=== PATIENT | male | born 1930 | race Caucasian/White ===

== ENCOUNTER 2016-07-25 16:52 | Inpatient (IN) | payer MEDICARE, BC ==
[~2016-07-25] VITALS: Ht 177.8 cm; Wt 81.9 kg
[~2016-07-25 16:52] MED LIST: ALTA2.5C4 PO; ASPI81TA82 PO; LORA-474 PO; PRAS10TA PO; ROSU40 PO
[2016-07-25 16:54] VITALS: BP 138/80; PULSE 80; RESP 16; TEMP 98.2; O2SAT 96
[2016-07-25] MEDS ORDERED: LEXA20TA PO (17:25)
[2016-07-25] MEDS ORDERED: PROT40TA PO (17:25)
[2016-07-25] MEDS ORDERED: ASPI1TAB69 PO (17:25)
[2016-07-25] MEDS ORDERED: CARB25TA9 PO ×4 (17:25)
[2016-07-25] MEDS ORDERED: IRBE150T49 PO (17:25)
[2016-07-25 17:38] LABS: HEMATOCRIT 37.8 % (39.0-51.0); MEAN CELL VOLUME 89.2 FL (80.0-100.0); MEAN CORPUSCULAR HEMOGLOBIN 30.4 PG (27.0-34.0); MEAN CORPUSCULAR HGB CONC 34.1 % (32.0-36.0); PLATELET COUNT 102 TH/MM3 (150-450); RED BLOOD COUNT 4.24 MIL/MM3 (4.50-5.90); RED CELL DISTRIBUTION WIDTH 12.4 % (11.6-17.2); WHITE BLOOD COUNT 3.3 TH/MM3 (4.0-11.0)
[2016-07-25 17:46] LABS: POTASSIUM 3.8 MEQ/L (3.5-5.1)
[2016-07-25 17:50] LABS: BICARBONATE 30.5 MEQ/L (21.0-32.0); HEMO FLAGS AUTO DIFF
[2016-07-25 17:54] LABS: TOTAL BILIRUBIN ADULT 5.5 MG/DL (0.2-1.0)
[2016-07-25 18:15] LABS: POLYS (SEG NEUTROPHILS) 63 % (16-70)
[2016-07-25 18:16] LABS: BANDS 5 % (0-6); EOSINOPHILS 1 % (0-4); NEUTROPHIL # MANUAL DIFF 2.2 TH/MM3 (1.8-7.7)
[2016-07-25 18:17] LABS: PLATELET ESTIMATE SMEAR LOW (NORMAL); PLATELET MORPHOLOGY NORMAL (NORMAL); SCAN/DIFF FINAL DIFF MANUAL
--- NOTE | 2016-07-25 19:25 | PD ---
HPI Chief Complaint: Abnormal Results Time Seen by Provider: 17:08 Travel History International Travel<30 days: No Contact w/Intl Traveler<30days: No Traveled to known affect area: No History of Present Illness HPI Patient is a 86 year old male sent in by his primary physician for abnormal labs. He says that Thursday he was feeling nauseous and had vomiting. He went to an urgent care, where he was prescribed Zofran. He says the nausea and vomiting went away. He went to follow up with his doctor and was found to be jaundice. His doctor sent him to have lab work and a CT abd/pelvis done and when the results came back, he was told to come to the ED. He was found to have an elevated bilirubin to 7.2 as well as platelets of 88. Currently, patient reports no abdominal pain, he no longer has any nausea or vomiting. He says he has had a low-grade fever, around 99, all week. He currently is not having any symptoms. PFSH Past Medical History Depression: Yes Cancer: Yes (SKIN) Cardiovascular Problems: Yes High Cholesterol: Yes Diminished Hearing: Yes ([place]) Gastrointestinal Disorders: Yes (gallstones) GERD: Yes Hiatal Hernia: No Hypertension: Yes Parkinson's Disease: Yes Influenza Vaccination: No ?: Not Past Surgical History Abdominal Surgery: Yes (HERNIA) Cholecystectomy: Yes Coronary Stent: Yes Genitourinary Surgery: Yes (PROSTATE x2) Oral Surgery: Yes (tonsillectomy) Pacemaker: No Tonsillectomy: Yes Tympanostomy Tube: Yes Other Surgery: Yes (SKIN CA REMOVAL) Social History Alcohol Use: Yes (OCC) Tobacco Use: No Substance Use: No Allergies-Medications (Allergen,Severity, Reaction): Coded Allergies: No Known Allergies (Unverified , 07/25/16) Reported Meds & Prescriptions Reported Meds & Active Scripts Active Reported Protonix (Pantoprazole Sodium) 40 Mg Tab 40 Mg PO DAILY Aspirin 81 Mg Tabdr 81 Mg PO DAILY Carbidopa-Levodopa 25-100 Mg Tab 1.5 Tab PO 1700 Carbidopa-Levodopa 25-100 Mg Tab 2 Tab PO 1500 Carbidopa-Levodopa 25-100 Mg Tab 1.5 Tab PO 11AM Carbidopa-Levodopa 25-100 Mg Tab 2 Tab PO DAILY Lexapro (Escitalopram Oxalate) 20 Mg Tab 20 Mg PO DAILY Avapro (Irbesartan) 150 Mg Tab 150 Mg PO DAILY Review of Systems Except as stated in HPI: all other systems reviewed are Neg General / Constitutional: Positive: Fever, No: Chills HENT: No: Headaches, Lightheadedness Cardiovascular: No: Chest Pain or Discomfort Respiratory: No: Shortness of Breath Gastrointestinal: No: Nausea, Vomiting, Abdominal Pain Genitourinary: No: Dysuria Musculoskeletal: No: Edema Skin: Positive Change in Pigmentation Neurologic: No: Weakness, Dizziness Physical Exam Narrative GENERAL: Awake and alert, in no acute distress. SKIN: Warm and dry. Jaundiced of the face and upper body. HEAD: Atraumatic. Normocephalic. EYES: Pupils equal and round. Scleral icterus. ENT: Mucous membranes pink and moist. NECK: Trachea midline. No JVD. CARDIOVASCULAR: Regular rate and rhythm. No murmur appreciated. RESPIRATORY: No accessory muscle use. Clear to auscultation. Breath sounds equal bilaterally. GASTROINTESTINAL: Abdomen soft, non-tender, nondistended. MUSCULOSKELETAL: No obvious deformities. No clubbing. No cyanosis. No edema. NEUROLOGICAL: Awake and alert. No obvious cranial nerve deficits. Motor grossly within normal limits. Normal speech. PSYCHIATRIC: Appropriate mood and affect; insight and judgment normal. Data Data Last Documented VS Vital Signs Date Time Temp Pulse Resp B/P Pulse Ox O2 Delivery O2 Flow Rate FiO2 07/25/16 16:54 98.2 80 16 138/80 96 Orders Complete Blood Count With Diff (07/25/16 17:19) Basic Metabolic Panel (Bmp) (07/25/16 17:19) Hepatic Functional Panel (07/25/16 17:19) Ldh Serum (07/25/16 17:19) Us Abdomen Liver (07/25/16 ) Place In Observation (07/25/16 ) Vital Signs (Adult) Q4H (07/25/16 19:26) Activity Oob With Assistance (07/25/16 19:26) Internet Marketing Director / Telemetry .CONTINUOUS (07/25/16 19:26) Diet Npo (07/26/16 Breakfast) Sodium Chloride 0.9% Flush (Ns Flush) (07/25/16 19:30) Sodium Chloride 0.9% Flush (Ns Flush) (07/25/16 21:00) Ondansetron Inj (Zofran Inj) (07/25/16 19:30) Comprehensive Metabolic Panel (07/26/16 06:00) Complete Blood Count With Diff (07/26/16 06:00) Lipase (07/26/16 06:00) Pt Request For Service (07/25/16 19:26) Case Management Consult (07/25/16 19:26) Scd Bilateral/Knee High RAMBO.BID (07/25/16 19:26) Naloxone Inj (Narcan Inj) (07/25/16 19:30) Admit Order (Ed Use Only) (07/25/16 ) Labs Laboratory Tests Test 07/25/16 17:25 White Blood Count 3.3 TH/MM3 Red Blood Count 4.24 MIL/MM3 Hemoglobin 12.9 GM/DL Hematocrit 37.8 % Mean Corpuscular Volume 89.2 FL Mean Corpuscular Hemoglobin 30.4 PG Mean Corpuscular Hemoglobin 34.1 % Concent Red Cell Distribution Width 12.4 % Platelet Count 102 TH/MM3 Mean Platelet Volume 6.8 FL Neutrophils (%) (Auto) % Lymphocytes (%) (Auto) % Monocytes (%) (Auto) % Eosinophils (%) (Auto) % Basophils (%) (Auto) % Neutrophils # (Auto) TH/MM3 Lymphocytes # (Auto) TH/MM3 Monocytes # (Auto) TH/MM3 Eosinophils # (Auto) TH/MM3 Basophils # (Auto) TH/MM3 CBC Comment AUTO DIFF Neutrophils % (Manual) 63 % Band Neutrophils % 5 % Lymphocytes % 16 % Monocytes % 15 % Eosinophils % 1 % Neutrophils # (Manual) 2.2 TH/MM3 Differential Comment FINAL DIFF MANUAL Platelet Estimate LOW Platelet Morphology Comment NORMAL Red Cell Morphology Comment NORMAL Sodium Level 137 MEQ/L Potassium Level 3.8 MEQ/L Chloride Level 100 MEQ/L Carbon Dioxide Level 30.5 MEQ/L Anion Gap 7 MEQ/L Blood Urea Nitrogen 12 MG/DL Creatinine 1.20 MG/DL Estimat Glomerular Filtration 58 ML/MIN Rate Random Glucose 108 MG/DL Calcium Level 8.0 MG/DL Total Bilirubin 5.5 MG/DL Direct Bilirubin 3.5 MG/DL Indirect Bilirubin 2.0 MG/DL Aspartate Amino Transf 54 U/L (AST/SGOT) Alanine Aminotransferase 31 U/L (ALT/SGPT) Alkaline Phosphatase 142 U/L Lactate Dehydrogenase 166 U/L Total Protein 6.5 GM/DL Albumin 2.9 GM/DL MDM Medical Decision Making Medical Screen Exam Complete: Yes Emergency Medical Condition: Yes Medical Record Reviewed: Yes Differential Diagnosis Hepatitis versus retained gallstone versus liver failure Narrative Course Patient is an 86-year-old male who comes in due to abnormal labs. Exam shows patient is jaundiced with scleral icterus. IV established, labs sent. Total bilirubin is 5.5 with a direct bilirubin is 3.5. AST is mildly elevated to 54, ALT is within normal limits. Patient had an outpatient CT of the abdomen and pelvis that did not show a cause of the abnormal labs. I spoke with Dr. Oden of gastroenterology who would like the patient transferred to the main hospital for admission and further testings. Patient admitted to hospitalist service. Diagnosis Primary Impression: Jaundice Additional Impression: Hyperbilirubinemia Admitting Information Admitting Physician Requests: Admit America Munroe MD Jul 25, 2016 19:25
[2016-07-25] MEDS ORDERED: ONDANSETRON HCL 4 MG/2 ML VIAL IVP PRN (19:30)
[2016-07-25] MEDS ORDERED: NALOXONE HCL 0.4 MG/ML AMP IV PRN (19:30)
[2016-07-25] MEDS ORDERED: SODIUM CHLORIDE 0.9% FLUSH 5 ML FLUSH FLUSH PRN (19:30)
[2016-07-25 20:46] VITALS: BP 155/78; PULSE 71; RESP 16; TEMP 97.9; O2SAT 95
--- NOTE | 2016-07-25 20:49 | RADHPO ---
EXAM DATE/TIME: 07/25/2016 23:54 [facility] COMPARISON: No previous studies available for comparison. EXTERNAL COMPARISON : [facility], CT ABDOMEN AND PELVIS W/ CONTRAS, July 25, 2016[facility], CT ABDOM EN AND PELVIS W & W/O CONTRAST, March 13, 2014. [facility], US ABDOMEN GALLBLADDER, August [id number]. INDICATIONS : Jaundice. MEDICAL HISTORY : Hypercholesterolemia. Gastroesophageal reflux disease. Parkinson's. Hearing loss. Hypertension. Galls tones. Depression. Skin cancer. SURGICAL HISTORY : Cholecystectomy. Tonsillectomy. Prostatectomy. Skin cancer removal. Tympanostomy tubes. Coronary lewis ry stent. Hernia repair. ENCOUNTER: Subsequent ACUITY: 1 day PAIN SCORE: 0/10 LOCATION: Bilateral abdomen. MEASUREMENTS: LIVER: 16.9 cm length COMMON DUCT: 5 mm RIGHT KIDNEY: 12.5 x 5.9 x 5.9 cm SPLEEN: 13.3 cm length FINDINGS: LIVER: There are cystic areas seen in the liver. The largest cystic area seen in the right lobe measures 4. 7 x 3.8 x 3.5 cm. This has some minimal septation within it. The other prominent cyst in the right lobe measures 2.7 x 2.7 x 2.2 cm. COMMON DUCT: No intraluminal mass or stone visualized. GALLBLADDER: The patient is status post cholecystectomy. PANCREAS: The visualized portions are within normal limits. RIGHT KIDNEY: Several cysts are seen. The largest cyst is a simple cyst at the mid kidney measuring 4.1 x 3.9 x 3. 6 cm. There is a minimally complex cyst seen at the mid kidney with thin septations measuring 3.0 x 2.9 x 2.8 cm. SPLEEN: The spleen is mildly enlarged measuring 13.3 cm in length. Focal splenic lesions are not seen. CONCLUSION: 1. Hepatic and renal cysts. The largest hepatic and second largest right renal cyst are minimally co mplex with septations. These can be followed. 2. Splenomegaly. 3. The patient is status post cholecystectomy. Fernie Morin MD on July 25, 2016 at 19:57 Board Certified Radiologist. This report was verified electronically.
[2016-07-25] MEDS: SODIUM CHLORIDE 0.9% FLUSH 5 ML FLUSH FLUSH SCH (21:20)
[2016-07-25 23:28] VITALS: BP 155/73; PULSE 69; RESP 15; TEMP 97.5; O2SAT 96
[2016-07-26] VITALS (8 sets, daily range): BP systolic 138–178; BP diastolic 80–88; PULSE 59–82; RESP 15–20; TEMP 97.2–98.4; O2SAT 82–96
--- NOTE | 2016-07-26 00:51 | HHI.HP ---
[facility] Service [facility] Primary Care Physician Karthikeyan Odonnell MD Admission Diagnosis jaundice, elevated bilirubin Diagnoses: Chief Complaint: Jaundice Travel History International Travel<30 Days: No Contact w/Intl Traveler <30 Da: No Traveled to Known Affected Are: No History of Present Illness History from patient, ER physician communication, and review of medical records. Patient reported that he came to the hospital because he has been jaundiced. He stated that he presented to outpatient clinic and some apple was drawn and he was told that his liver enzymes are okay but his other blood counts were not good. He was then told to emergency room for further treatment. Patient initially presented to [facility] emergency room. Workup there revealed possible biliary obstruction. His case was discussed with GI hr business partner consultant building construction supervisor by ER physician and was advised to transfer to the main hospital for possible ERCP. Patient himself denies any abdominal pains with this jaundice. Denies any nausea/vomiting/diarrhea/urinary burning or pain on urination. He states that in fact, he has been constipated. Denies any black color stool or red color stool. Denies any changes in the color of his urine. denies any burning when he urinates or pain on urination. Denies fever. Apart from the above, patient also denies any chest pain/palpitations/shortness of breath/focal weakness. Review of Systems 12 point review of system is obtained and negative apart from what is mentioned in HPI Past Family Social History Past Medical History Hypertension Coronary artery disease is status post cardiac stents 2 about 2 years ago Parkinson's disease Past Surgical History Appendectomy Skin cancer removal Cholecystectomy Umbilical hernia repair Reported Medications Patient's medications listed in the EMRreviewed. Patient stated that someone did go through the medications list with him. Allergies: Coded Allergies: No Known Allergies (Unverified , 07/25/16) Family History Denies any family history of any medical issues. Social History Denies smoking/alcohol abuse/drug abuse. Physical Exam Vital Signs Vital Signs Date Time Temp Pulse Resp B/P Pulse Ox O2 Delivery O2 Flow Rate FiO2 07/25/16 23:28 97.5 69 15 155/73 96 07/25/16 20:46 97.9 71 16 155/78 95 Room Air 07/25/16 19:40 Room Air 07/25/16 16:54 98.2 80 16 138/80 96 Physical Exam GENERAL: This is a well-nourished, well-developed patient, in no apparent distress. SKIN: No rashes, ecchymoses or lesions. Cool and dry. Skin jaundiced HEAD: Atraumatic. Normocephalic. No temporal or scalp tenderness. EYES: Sclera icterus No injection or drainage. ENT: Nose without bleeding, purulent drainage or septal hematoma. Throat without erythema, tonsillar hypertrophy or exudate. Uvula midline. Airway patent. NECK: Trachea midline. No JVD or lymphadenopathy. Supple, nontender, no meningeal signs. CARDIOVASCULAR: Regular rate and rhythm without murmurs, gallops, or rubs. RESPIRATORY: Clear to auscultation. Breath sounds equal bilaterally. No wheezes , rales, or rhonchi. GASTROINTESTINAL: Abdomen soft, non-tender, nondistended. No guarding. MUSCULOSKELETAL: Extremities without clubbing, cyanosis, or edema. No calf tenderness. NEUROLOGICAL: Awake and alert.. Motor and sensory grossly within normal limits. Normal speech. Laboratory Laboratory Tests Test 07/25/16 17:25 White Blood Count 3.3 Red Blood Count 4.24 Hemoglobin 12.9 Hematocrit 37.8 Mean Corpuscular Volume 89.2 Mean Corpuscular Hemoglobin 30.4 Mean Corpuscular Hemoglobin 34.1 Concent Red Cell Distribution Width 12.4 Platelet Count 102 Mean Platelet Volume 6.8 Neutrophils (%) (Auto) Lymphocytes (%) (Auto) Monocytes (%) (Auto) Eosinophils (%) (Auto) Basophils (%) (Auto) Neutrophils # (Auto) Lymphocytes # (Auto) Monocytes # (Auto) Eosinophils # (Auto) Basophils # (Auto) CBC Comment AUTO DIFF Neutrophils % (Manual) 63 Band Neutrophils % 5 Lymphocytes % 16 Monocytes % 15 Eosinophils % 1 Neutrophils # (Manual) 2.2 Differential Comment FINAL DIFF MANUAL Platelet Estimate LOW Platelet Morphology Comment NORMAL Red Cell Morphology Comment NORMAL Sodium Level 137 Potassium Level 3.8 Chloride Level 100 Carbon Dioxide Level 30.5 Anion Gap 7 Blood Urea Nitrogen 12 Creatinine 1.20 Estimat Glomerular Filtration 58 Rate Random Glucose 108 Calcium Level 8.0 Total Bilirubin 5.5 Direct Bilirubin 3.5 Indirect Bilirubin 2.0 Aspartate Amino Transf 54 (AST/SGOT) Alanine Aminotransferase 31 (ALT/SGPT) Alkaline Phosphatase 142 Lactate Dehydrogenase 166 Total Protein 6.5 Albumin 2.9 Result Diagram: 07/25/16 1725 07/25/16 1725 Imaging Last 48 hours Impressions Liver Ultrasound 07/25/16 0000 Signed Impressions: Service Date/Time: Monday, July 25, 2016 23:54 - CONCLUSION: 1. Hepatic and renal cysts. The largest hepatic and second largest right renal cyst are minimally complex with septations. These can be followed. 2. Splenomegaly. 3. The patient is status post cholecystectomy. Fernie Morin MD Assessment and Plan Problem List: (1) Jaundice ICD Code: R17 Status: Acute (2) Hyperbilirubinemia ICD Code: E80.6 Status: Acute Assessment and Plan Impression: Painless jaundiceetiology unclear. Outpatient CT abdomen and pelvis was done recently with no acute pathology per report. Plan: GI consult. Possible MRCP in the morning if GI request. Nothing by mouth. Liver ultrasoundreports noted. Resume his home medications particularly the Parkinson's meds. DVT prophylaxiswith SCD. GI prophylaxis on pantoprazole. Discussed Condition With Patient, ER physician, patient's nurse Physician Certification 2 Midnight Certification Type: Admission for Inpatient Services Order for Inpatient Services The services are ordered in accordance with Medicare regulations or non- Medicare payer requirements, as applicable. In the case of services not specified as inpatient-only, they are appropriately provided as inpatient services in accordance with the 2-midnight benchmark. Estimated LOS (days): 2 days is the estimated time the patient will need to remain in the hospital, assuming treatment plan goals are met and no additional complications. Post-Hospital Plan: Home Matt Rosa MD Jul 26, 2016 00:51
[2016-07-26] MEDS: PANTOPRAZOLE SOD 40 MG DELAYED RELEASE TAB PO SCH (09:05)
[2016-07-26] MEDS: LOSARTAN 50 MG TAB PO SCH (09:05)
[2016-07-26] MEDS: CARBIDOPA/LEVODOPA 25 MG/100 MG TAB PO SCH ×2 (09:05→12:38)
[2016-07-26] MEDS: SODIUM CHLORIDE 0.9% FLUSH 5 ML FLUSH FLUSH SCH ×2 (09:05→20:39)
--- NOTE | 2016-07-26 09:36 | HHI.PR ---
Subjective Remarks in no acute distress. denies abdominal pain, nausea or vomiting. no fever. at the bedside. Objective Vitals Vital Signs Date Time Temp Pulse Resp B/P Pulse Ox O2 Delivery O2 Flow Rate FiO2 07/26/16 08:00 98.4 74 20 178/88 95 07/26/16 04:00 97.2 67 15 150/85 95 07/26/16 00:23 60 07/25/16 23:28 97.5 69 15 155/73 96 07/25/16 20:46 97.9 71 16 155/78 95 Room Air 07/25/16 19:40 Room Air 07/25/16 16:54 98.2 80 16 138/80 96 I/O 07/25/16 07/25/16 07/25/16 07/26/16 07/26/16 07/26/16 07:00 15:00 23:00 07:00 15:00 23:00 Intake Total 0 ml Balance 0 ml Intake Oral 0 ml # Voids 1 1 Result Diagram: 07/25/16 1725 07/25/16 1725 Imaging Last Impressions Liver Ultrasound 07/25/16 0000 Signed Impressions: Service Date/Time: Monday, July 25, 2016 23:54 - CONCLUSION: 1. Hepatic and renal cysts. The largest hepatic and second largest right renal cyst are minimally complex with septations. These can be followed. 2. Splenomegaly. 3. The patient is status post cholecystectomy. Fernie Morin MD Objective Remarks GENERAL: jaundiced, in no apparent distress. CARDIOVASCULAR: Regular rate and regular rhythm without murmurs, gallops, or rubs. RESPIRATORY: Clear to auscultation. Breath sounds equal bilaterally. No wheezes , rales, or rhonchi. GASTROINTESTINAL: Abdomen soft, non-tender, nondistended. Normal, active bowel sounds MUSCULOSKELETAL: Extremities without clubbing, cyanosis, or edema. NEURO: Alert & Oriented x4 to person, place, time, situation. Moves all ext x4 Procedures none Medications and IVs Current Medications IV Flush (NS Flush) 2 ml UNSCH PRN FLUSH FLUSH AFTER USING IV ACCESS; Start at 19:30 IV Flush (NS Flush) 2 ml BID FLUSH Last administered on 07/26/16t 09:05; Start 07/25/16 at 21:00 Ondansetron HCl (Zofran Inj) 4 mg Q6H PRN IVP NAUSEA OR VOMITING; Start at 19:30 Naloxone HCl (Narcan Inj) 0.4 mg UNSCH PRN IV SEE LABEL COMMENTS; Start at 19:30 Carbidopa/Levodopa (Sinemet 25-100 Mg) 1.5 tab DAILY@1100 PO ; Start 07/26/16 at 11:00 Carbidopa/Levodopa (Sinemet 25-100 Mg) 1.5 tab 1700 PO ; Start 07/26/16 at 17:00 Carbidopa/Levodopa (Sinemet 25-100 Mg) 2 tab DAILY@15 PO ; Start 07/26/16 at 15: 00 Carbidopa/Levodopa (Sinemet 25-100 Mg) 2 tab DAILY PO Last administered on 07/26 09:05; Start 07/26/16 at 09:00 Escitalopram Oxalate (Lexapro) 20 mg DAILY PO ; Start 07/26/16 at 09:00 Losartan Potassium (Cozaar) 150 mg DAILY PO Last administered on 07/26/16 09: 05; Start 07/26/16 at 09:00 Pantoprazole Sodium (Protonix) 40 mg DAILY PO Last administered on 07/26/16 09 :05; Start 07/26/16 at 09:00 A/P Assessment and Plan A/P - Jaundice check hepatitis panel- LFT's in am- GI consulted -CAD- s/p stent placement- stable- hold aspirin for now -Parkinson's disease- resumed home meds -thrombocytopenia; will monitor -DVT prophylaxis with SCD's Ninfa Pierce MD Jul 26, 2016 09:35
[2016-07-26 09:40] LABS: AUTOMATED NEUTROPHIL # 2.1 TH/MM3 (1.8-7.7); BASOPHIL % 0.2 % (0.0-2.0); EOSINOPHIL # 0.1 TH/MM3 (0-0.4); EOSINOPHIL % 1.9 % (0.0-4.0); HEMATOCRIT 36.5 % (39.0-51.0); LYMPH % 23.5 % (9.0-44.0); LYMPHOCYTE # 0.8 TH/MM3 (1.0-4.8); MEAN CORPUSCULAR HEMOGLOBIN 30.2 PG (27.0-34.0); MEAN CORPUSCULAR HGB CONC 34.7 % (32.0-36.0); MONO % 14.8 % (0.0-8.0); NEUT % 59.6 % (16.0-70.0); PLATELET COUNT 92 TH/MM3 (150-450); RED CELL DISTRIBUTION WIDTH 13.1 % (11.6-17.2); WHITE BLOOD COUNT 3.5 TH/MM3 (4.0-11.0)
[2016-07-26 09:52] LABS: HEMO FLAGS AUTO DIFF
[2016-07-26] MEDS: ESCITALOPRAM OXALATE 20 MG TAB PO SCH (09:52)
[2016-07-26] MEDS: SODIUM CHLOR 0.9% 1000 ML INJ 1,000 ML IV SCH (09:53)
[2016-07-26 10:05] LABS: ALKALINE PHOSPHATASE 163 U/L (45-117); ALT (GPT) 87 U/L (12-78); ANION GAP 10 MEQ/L (5-15); AST (GOT) 71 U/L (15-37); BICARBONATE 27.3 MEQ/L (21.0-32.0); BLOOD UREA NITROGEN 14 MG/DL (7-18); CHLORIDE 100 MEQ/L (98-107); GLOMERULAR FILTRATION RATE 61 ML/MIN (>89); POTASSIUM 3.6 MEQ/L (3.5-5.1); SODIUM (NA) 137 MEQ/L (136-145); TOTAL BILIRUBIN ADULT 4.2 MG/DL (0.2-1.0)
[2016-07-26 10:38] LABS: BANDS 19 % (0-6); NEUTROPHIL # MANUAL DIFF 2.1 TH/MM3 (1.8-7.7); PLATELET ESTIMATE SMEAR LOW (NORMAL); PLATELET MORPHOLOGY NORMAL (NORMAL); POLYS (SEG NEUTROPHILS) 41 % (16-70); SCAN/DIFF FINAL DIFF MANUAL; WBC DIFF SAMPLE 100
[2016-07-26] MEDS ORDERED: LORazepam 2 MG/ML VIAL IV PUSH ONE (11:15)
[2016-07-26] MEDS ORDERED: CARBIDOPA/LEVODOPA 25 MG/100 MG TAB PO SCH ×2 (15:00→17:00)
[2016-07-26] MEDS ORDERED: GADODIAMIDE PF 287 MG/ML 20 ML VIAL (for RAD MRI) IV ONE (15:22)
--- NOTE | 2016-07-26 15:56 | RADRPT ---
EXAM DATE/TIME: 07/26/2016 15:01 [facility] COMPARISON: No previous studies available for comparison. INDICATIONS : Jaundice. H/O cholecystectomy. CONTRAST: 15 cc Omniscan (gadodiamide) IV MEDICAL HISTORY : Parkinson's. Hypertension. Hypercholesterolemia. SURGICAL HISTORY : Cholecystectomy. Prostate surgery. ENCOUNTER: Initial ACUITY: 2 day PAIN SCORE: 0/10 LOCATION: abdomen TECHNIQUE: Multiplanar, multisequence magnetic resonance imaging of the abdomen was performed. High-resolution 3D dataset was utilized to reconstruct maximum-intensity projection (MIP) images. FINDINGS: The common duct is mildly prominent in size, about 11 mm in maximal diameter proximally but within no rmal limits postcholecystectomy. The cystic duct is long and inserts low on the common bile duct. No choledocholithiasis identified. Pancreatic duct is normal caliber. There are numerous hepatic cysts a nd bilateral renal cysts, right greater than left. No ascites. No suspicious lesions identified in th e liver and spleen. The adrenal glands are mildly enlarged bilaterally. Bilateral renal cysts present . CONCLUSION: 1. Negative for choledocholithiasis. Common bile duct has a maximal diameter of just over 1 cm, statu s post cholecystectomy. Pancreatic duct is normal caliber. No free fluid. There is some mild narrowin g of the proximal left hepatic duct. 2. Hepatic and bilateral renal cysts. Jesus Lance MD on July 26, 2016 at 15:43 Board Certified Radiologist. This report was verified electronically.
[2016-07-26] MEDS ORDERED: LEVOFLOXACIN 500 MG PREMIX INJ 100 ML IV SCH (16:00)
--- NOTE | 2016-07-26 16:01 | MB ---
cc: STUART PALMER DATE OF CONSULTATION: 07/26/2016. REASON FOR CONSULTATION: Jaundice. PRIMARY DRIVER HELPER: Dr. Adrian Thomas. HISTORY OF PRESENT ILLNESS: This is an 86-year-old very pleasant gentleman who was advised by his primary care physician to go to the emergency room after noticing elevated LFTs and jaundice. Over the last four to five days he has been having issues with mild weakness, fatigue feeling and occasional fevers and chills. His temperature was actually has been as high as 101.5 prior to admission. Earlier in the week, he had a bout of nausea and vomiting and generalized feeling unwell. Due to his symptoms, he went to his primary care physician's office and he was noted to be slightly yellow and therefore he was advised to undergo lab work. A detailed lab work was performed, which apparently showed elevated liver function tests and therefore he was referred to the emergency room. He denies any recent sick contacts or similar symptoms in the recent past. He did go on a cruise to the [facility] several weeks ago but states he did not leave the cruise ship. He denies any abdominal pain. No current nausea or vomiting. He overall feels better than he has in last several days. PAST MEDICAL HISTORY: 1. Hypertension. 2. Coronary artery disease. 3. Parkinson's disease. PAST SURGICAL HISTORY: 1. Appendectomy. 2. History of skin cancer removal. 3. Cholecystectomy. 4. Umbilical hernia repair. ALLERGIES: NO KNOWN DRUG ALLERGIES. HOME MEDICATIONS: 1. Protonix. 2. Aspirin. 3. Carbidopa/levodopa. 4. Celexa. 5. Avapro. FAMILY HISTORY: No GI malignancies. SOCIAL HISTORY Denies any tobacco use, illicit drug use. He does drink alcohol occasionally. REVIEW OF SYSTEMS: A twelve-point review of systems was obtained and was negative or noncontributory except for the above-mentioned in the history of present illness. PHYSICAL EXAMINATION: VITAL SIGNS: 98, 69, 18, 163/80, 98% on room air. GENERAL: Alert oriented and in no acute distress. HEAD, EYES, EARS, NOSE, THROAT: Normocephalic and atraumatic. Pupils equal, round and reactive to light and accommodation. Extraocular muscles intact. Oral mucosa is moist and pink. NECK: The neck is supple. No jugular venous distention noted. LUNGS: Clear to auscultation bilaterally. Nonlabored respirations. CARDIOVASCULAR: Regular rate and rhythm. No murmurs heard. GASTROINTESTINAL: Soft and nontender and nondistended. Bowel sounds are present in all four quadrants. No edema noted. No rebound appreciated. No hepatosplenomegaly appreciated. LYMPHATIC: No lymphadenopathy noted in the axillae. MUSCULOSKELETAL: Normal range of motion. SKIN: Warm and dry and intact. Florid jaundice noted. NEUROLOGIC: Alert and oriented. Resting tremor in the lower extremity noted. PSYCHIATRIC: Appropriate mood and affect. LABORATORY DATA WBCs 3.5, hemoglobin 12.7, MCV 87, platelets 92,000. Sodium 137, potassium 3.6, chloride 100, bicarb 27.3, BUN 14, creatinine 1.14, total bilirubin is improved from 5.5 down to 4.2, AST 71, ALT 87, alkaline phosphatase 163, LDH 166, albumin 2.8, lipase 173. Hepatitis A, B, C pending. IMAGING STUDIES: Ultrasound abdomen: Hepatic and renal cysts, appear to be complex and septated, splenomegaly, status post cholecystectomy, largest liver cyst 4.7 x 3.8 x 0.5 common bile duct with no ____ stones noted. Pancreas normal. IMPRESSION: 1. Jaundice of unclear etiology possibility of infectious etiology versus biliary colic or a primary hepatocellular dysfunction. 2. Other reasons such as idiopathic hereditary as well as the possibility of being medication-induced. RECOMMENDATIONS: 1. Recommend keeping the patient n.p.o. for now. 2. Recommend MRI of abdomen with contrast and MRCP to rule out occult pathology. 3. Recommend starting empiric antibiotics with Levaquin 500 milligrams q.24 h 4. Once the MRI is complete, then the patient may start on a soft diet. 5. Lab work including hepatitis profile, ANSHUL, ASMA to rule out other common disorders such as genetic or metabolic. I had a detailed discussion of various etiologies and the differential diagnosis with the patient and the family at bedside and they are agreeable to proceeding with this plan. MD PRISCILLA Ram/HARI /2:21 PM /3:50 PM
[2016-07-26 18:20] LABS: PROTHROMBIN TIME - PATIENT 10.8 SEC (9.8-11.6)
[2016-07-27] VITALS: BP 160/81; PULSE 71; RESP 16; TEMP 96.5; O2SAT 95
[2016-07-27] MEDS: SODIUM CHLOR 0.9% 1000 ML INJ 1,000 ML IV SCH (00:55)
[2016-07-27 04:00] VITALS: BP 168/88; PULSE 71; RESP 16; TEMP 96.6; O2SAT 98
[2016-07-27] MEDS: SODIUM CHLORIDE 0.9% FLUSH 5 ML FLUSH FLUSH SCH (07:46)
[2016-07-27 07:47] VITALS: PULSE 75
[2016-07-27] MEDS: ESCITALOPRAM OXALATE 20 MG TAB PO SCH (07:48)
[2016-07-27] MEDS: LOSARTAN 50 MG TAB PO SCH (07:48)
[2016-07-27] MEDS: CARBIDOPA/LEVODOPA 25 MG/100 MG TAB PO SCH ×2 (07:48→11:38)
[2016-07-27 07:50] VITALS: BP 179/93; PULSE 76; RESP 20; TEMP 97.6; O2SAT 93
[2016-07-27] MEDS: PANTOPRAZOLE SOD 40 MG DELAYED RELEASE TAB PO SCH (07:52)
--- NOTE | 2016-07-27 07:52 | HHI.PR ---
Subjective Remarks resting comfortably with no distress. says that he's feeling better today. denies pain. Objective Vitals Vital Signs Date Time Temp Pulse Resp B/P Pulse Ox O2 Delivery O2 Flow Rate FiO2 07/27/16 04:00 96.6 71 16 168/88 98 07/27/16 00:00 96.5 71 16 160/81 95 07/26/16 20:54 59 07/26/16 20:00 97.3 64 15 156/81 96 07/26/16 16:00 97.4 82 18 138/80 82 07/26/16 12:00 98.0 69 18 163/80 96 07/26/16 08:00 98.4 74 20 178/88 95 07/26/16 07:57 68 I/O 07/26/16 07/26/16 07/26/16 07/27/16 07/27/16 07/27/16 07:00 15:00 23:00 07:00 15:00 23:00 Intake Total 0 ml 120 ml 1611 ml Balance 0 ml 120 ml 1611 ml Intake Oral 0 ml 120 ml 240 ml IV Total 1371 ml # Voids 1 3 # Bowel Movements 1 Result Diagram: 07/26/16 0825 07/26/16 0825 Imaging Last Impressions Cholangiopancreatography MRI 07/26/16 0000 Signed Impressions: Service Date/Time: Tuesday, July 26, 2016 15:01 - CONCLUSION: 1. Negative for choledocholithiasis. Common bile duct has a maximal diameter of just over 1 cm, status post cholecystectomy. Pancreatic duct is normal caliber. No free fluid. There is some mild narrowing of the proximal left hepatic duct. 2. Hepatic and bilateral renal cysts. Jesus Lance MD Liver Ultrasound 07/25/16 0000 Signed Impressions: Service Date/Time: Monday, July 25, 2016 23:54 - CONCLUSION: 1. Hepatic and renal cysts. The largest hepatic and second largest right renal cyst are minimally complex with septations. These can be followed. 2. Splenomegaly. 3. The patient is status post cholecystectomy. Fernie Morin MD Objective Remarks GENERAL: jaundiced, in no apparent distress. CARDIOVASCULAR: Regular rate and regular rhythm without murmurs, gallops, or rubs. RESPIRATORY: Clear to auscultation. Breath sounds equal bilaterally. No wheezes , rales, or rhonchi. GASTROINTESTINAL: Abdomen soft, non-tender, nondistended. Normal, active bowel sounds MUSCULOSKELETAL: Extremities without clubbing, cyanosis, or edema. NEURO: Alert & Oriented x4 to person, place, time, situation. Moves all ext x4 Procedures none Medications and IVs Current Medications IV Flush (NS Flush) 2 ml UNSCH PRN FLUSH FLUSH AFTER USING IV ACCESS; Start at 19:30 IV Flush (NS Flush) 2 ml BID FLUSH Last administered on 07/26/16 09:05; Start 07/25/16 at 21:00 Ondansetron HCl (Zofran Inj) 4 mg Q6H PRN IVP NAUSEA OR VOMITING; Start at 19:30 Naloxone HCl (Narcan Inj) 0.4 mg UNSCH PRN IV SEE LABEL COMMENTS; Start at 19:30 Carbidopa/Levodopa (Sinemet 25-100 Mg) 1.5 tab DAILY@1100 PO Last administered on 07/26/16 12:38; Start 07/26/16 at 11:00 Carbidopa/Levodopa (Sinemet 25-100 Mg) 1.5 tab 1700 PO Last administered on 18:59; Start 07/26/16 at 17:00 Carbidopa/Levodopa (Sinemet 25-100 Mg) 2 tab DAILY@15 PO Last administered on 16:15; Start 07/26/16 at 15:00 Carbidopa/Levodopa (Sinemet 25-100 Mg) 2 tab DAILY PO Last administered on 07/26 09:05; Start 07/26/16 at 09:00 Escitalopram Oxalate (Lexapro) 20 mg DAILY PO Last administered on 07/26/16 09 :52; Start 07/26/16 at 09:00 Losartan Potassium (Cozaar) 150 mg DAILY PO Last administered on 07/26/16 09: 05; Start 07/26/16 at 09:00 Pantoprazole Sodium 40 mg 40 mg DAILY PO Last administered on 07/26/16 09:05; Start 07/26/16 at 09:00 Sodium Chloride (NS 1000 ml Inj) 1,000 ml @ 75 mls/hr [id number] IV Last administered on 07/27/16 00:55; Start 07/26/16 at 10:00 Lorazepam 1 mg 1 mg ONCE ONCE IV PUSH Last administered on 07/26/16 14:43; Start 07/26/16 at 11:15; Stop 07/26/16 at 11:16; Status DC Levofloxacin/ Dextrose (Levaquin 500 Mg Premix Inj) 100 ml @ 100 mls/hr Q24H IV Last administered on 07/26/16 16:15; Start 07/26/16 at 16:00 Gadodiamide (Omniscan Pf Inj) 15 ml STK-MED ONCE IV Last administered on 15:22; Start 07/26/16 at 15:22; Stop 07/26/16 at 15:23; Status DC A/P Assessment and Plan A/P - Jaundice check hepatitis panel- LFT's today pending- MRCP with no choledocholithiasis- GI following. -CAD- s/p stent placement- stable- hold aspirin for now -Parkinson's disease- resumed home meds -thrombocytopenia; will monitor -DVT prophylaxis with SCD's Discharge Planning when ok with GI. Ninfa Pierce MD Jul 27, 2016 07:52
[2016-07-27 08:26] LABS: TOTAL BILIRUBIN ADULT 3.8 MG/DL (0.2-1.0)
[2016-07-27 09:59] LABS: BLOOD, URINE TRACE (NEG); GLUCOSE,URINE NEG (NEG); KETONE, URINE NEG (NEG); NITRITE,URINE NEG (NEG); URINE COLOR YELLOW (YELLW/STRAW)
[2016-07-27 10:00] LABS: COMMENT (UR) CULT NOT INDICATED; CULTURE IF INDICATED CULT NOT INDICATED
[2016-07-27 11:47] VITALS: BP 137/73; PULSE 77; RESP 20; TEMP 97.2; O2SAT 95
--- NOTE | 2016-07-27 13:20 | HHI.GIFU ---
GI Follow-up Note Consult Follow-up Subjective: Patient laying in bed comfortably, no new complaints except jaundice, which is better. MRI reviewed. Objective: PHYSICAL EXAMINATION: Vitals signs stable No fever HEENT: Pupils round and reactive to light; normocephalic; atraumatic; no jaundice. Throat is clear. NECK: Neck is supple, no JVD, no lymphadenopathy. CHEST: Chest is clear to auscultation and percussion. CARDIAC: Regular rate and rhythm with no murmur gallop or rubs. ABDOMEN: Soft, nondistended, nontender; no hepatosplenomegaly; bowel sounds are present in all four quadrants. EXTREMITIES: No clubbing, cyanosis, or edema. SKIN: Normal; no rash; no jaundice. 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 Available Data (labs, X- Rays, Procedures) : reviewed. ASSESSMENT/PLAN: 1. Jaundice etiology unclear, down trending 2. Elevated Lfts. - MRI negative for Acute obstruction 3. Febrile illness resolved. started on Levaquin RECS: 1. Diet as tolerated 2. Levaquin 500 mg q day x 5 ( 7 days total) 3. Outpt follow up with GI (Dr Thomas in 1-2 wks) 4. No objection to discharge from GI stand point. It was a pleasure seeing Renato Mireles. Thank you for this consult. Entered by: Britt Larios MD Jul 27, 2016 13:20
[2016-07-27] MEDS ORDERED: LEVA500T PO (14:06)
--- NOTE | 2016-07-27 14:08 | HHI.DCPOC ---
Discharge Care Plan Diagnosis: (1) Jaundice Additional Problems jaundice. Goals to Promote Your Health * To prevent worsening of your condition and complications * To maintain your health at the optimal level Directions to Meet Your Goals Take your medications as prescribed Follow your dietary instruction Follow activity as directed Keep your appointments as scheduled Take your immunizations and boosters as scheduled If your symptoms worsen call your PCP, if no PCP go to Urgent Care Center or Emergency Room Smoking is Dangerous to Your Health. Avoid second hand smoke Call the 24-hour hour crisis hotline for domestic abuse at Ninfa Pierce MD Jul 27, 2016 14:08
--- NOTE | 2016-07-27 14:09 | HHI.DS ---
Discharge Summary Admission Date Jul 25, 2016 at 19:29 Discharge Date: Jul 27, 2016 Admitting Diagnosis jaundice, elevated bilirubin (1) Jaundice ICD Code: R17 Diagnosis: Principal (2) Hyperbilirubinemia ICD Code: E80.6 Diagnosis: Principal Procedures none Brief History - From Admission History from patient, ER physician communication, and review of medical records. Patient reported that he came to the hospital because he has been jaundiced. He stated that he presented to outpatient clinic and some apple was drawn and he was told that his liver enzymes are okay but his other blood counts were not good. He was then told to emergency room for further treatment. Patient initially presented to [place] emergency room. Workup there revealed possible biliary obstruction. His case was discussed with GI aws consultant correctional officer sergeant by ER physician and was advised to transfer to the main hospital for possible ERCP. Patient himself denies any abdominal pains with this jaundice. Denies any nausea/vomiting/diarrhea/urinary burning or pain on urination. He states that in fact, he has been constipated. Denies any black color stool or red color stool. Denies any changes in the color of his urine. denies any burning when he urinates or pain on urination. Denies fever. Apart from the above, patient also denies any chest pain/palpitations/shortness of breath/focal weakness. CBC/BMP: 07/26/16 0825 07/26/16 0825 Significant Findings Laboratory Tests Test 07/25/16 07/26/16 07/27/16 07/27/16 17:25 08:25 07:21 09:20 White Blood Count 3.3 TH/MM3 3.5 TH/MM3 (4.0-11.0) (4.0-11.0) Red Blood Count 4.24 MIL/MM3 4.20 MIL/MM3 (4.50-5.90) (4.50-5.90) Hemoglobin 12.9 GM/DL 12.7 GM/DL (13.0-17.0) (13.0-17.0) Hematocrit 37.8 % 36.5 % (39.0-51.0) (39.0-51.0) Platelet Count 102 TH/MM3 92 TH/MM3 (150-450) (150-450) Mean Platelet Volume 6.8 FL (7.0-11.0) Monocytes % 15 % (0-8) 14 % (0-8) Platelet Estimate LOW (NORMAL) LOW (NORMAL) Estimat Glomerular Filtration 58 ML/MIN (>89) 61 ML/MIN (>89) Rate Random Glucose 108 MG/DL (74-106) Calcium Level 8.0 MG/DL 8.4 MG/DL (8.5-10.1) (8.5-10.1) Total Bilirubin 5.5 MG/DL 4.2 MG/DL 3.8 MG/DL (0.2-1.0) (0.2-1.0) (0.2-1.0) Direct Bilirubin 3.5 MG/DL 1.8 MG/DL (0.0-0.2) (0.0-0.2) Indirect Bilirubin 2.0 MG/DL 2.0 MG/DL (0.0-0.8) (0.0-0.8) Aspartate Amino Transf 54 U/L (15-37) 71 U/L (15-37) 107 U/L (15-37) (AST/SGOT) Alkaline Phosphatase 142 U/L 163 U/L 171 U/L (45-117) (45-117) (45-117) Albumin 2.9 GM/DL 2.8 GM/DL 2.9 GM/DL (3.4-5.0) (3.4-5.0) (3.4-5.0) Monocytes (%) (Auto) 14.8 % (0.0-8.0) Lymphocytes # (Auto) 0.8 TH/MM3 (1.0-4.8) Band Neutrophils % 19 % (0-6) Alanine Aminotransferase 87 U/L (12-78) (ALT/SGPT) Total Protein 6.3 GM/DL (6.4-8.2) Urine Occult Blood TRACE (NEG) Urine RBC 4 /hpf (0-3) Imaging Last Impressions Cholangiopancreatography MRI 07/26/16 0000 Signed Impressions: Service Date/Time: Tuesday, July 26, 2016 15:01 - CONCLUSION: 1. Negative for choledocholithiasis. Common bile duct has a maximal diameter of just over 1 cm, status post cholecystectomy. Pancreatic duct is normal caliber. No free fluid. There is some mild narrowing of the proximal left hepatic duct. 2. Hepatic and bilateral renal cysts. Jesus Lance MD Liver Ultrasound 07/25/16 0000 Signed Impressions: Service Date/Time: Monday, July 25, 2016 23:54 - CONCLUSION: 1. Hepatic and renal cysts. The largest hepatic and second largest right renal cyst are minimally complex with septations. These can be followed. 2. Splenomegaly. 3. The patient is status post cholecystectomy. Fernie Morin MD PE at Discharge GENERAL: jaundiced, in no apparent distress. CARDIOVASCULAR: Regular rate and regular rhythm without murmurs, gallops, or rubs. RESPIRATORY: Clear to auscultation. Breath sounds equal bilaterally. No wheezes , rales, or rhonchi. GASTROINTESTINAL: Abdomen soft, non-tender, nondistended. Normal, active bowel sounds MUSCULOSKELETAL: Extremities without clubbing, cyanosis, or edema. NEURO: Alert & Oriented x4 to person, place, time, situation. Moves all ext x4 Hospital Course - Jaundice check hepatitis panel- LFT's today pending- MRCP with no choledocholithiasis- GI following. -CAD- s/p stent placement- stable- hold aspirin for now -Parkinson's disease- resumed home meds -thrombocytopenia; will monitor -DVT prophylaxis with SCD's Pt Condition on Discharge: Fair Discharge Disposition: Discharge Home Discharge Time: <= 30 minutes Discharge Instructions DIET: Follow Instructions for: Heart Healthy Diet Activities you can perform: Regular-No Restrictions Follow up Referrals: Gastroenterology PCP Follow-up New Medications: Levofloxacin (Levaquin) 500 Mg Tab 500 MG PO DAILY Infection Days 5 Ref 0 TAB Continued Medications: Carbidopa-Levodopa (Carbidopa-Levodopa) 25-100 Mg Tab 2 TAB PO DAILY Parkinson Disease Mgmt #90 Ref 0 TAB Carbidopa-Levodopa (Carbidopa-Levodopa) 25-100 Mg Tab 1.5 TAB PO 11AM Parkinson Disease Mgmt #90 Ref 0 TAB Carbidopa-Levodopa (Carbidopa-Levodopa) 25-100 Mg Tab 2 TAB PO 1500 Parkinson Disease Mgmt #90 Ref 0 TAB Carbidopa-Levodopa (Carbidopa-Levodopa) 25-100 Mg Tab 1.5 TAB PO 1700 Parkinson Disease Mgmt #90 Ref 0 TAB Escitalopram (Lexapro) 20 Mg Tab 20 MG PO DAILY #30 Ref 0 TAB Irbesartan (Avapro) 150 Mg Tab 150 MG PO DAILY Blood Pressure Management #30 Ref 0 TAB Pantoprazole (Protonix) 40 Mg Tab 40 MG PO DAILY Reflux #30 Ref 0 TAB Discontinued Medications: Aspirin (Aspirin) 81 Mg Tabdr 81 MG PO DAILY TAB Ninfa Pierce MD Jul 27, 2016 14:09
[2016-07-31 03:52] LABS: MITOCHONDRIAL ABS LESS THAN 20.0 U (())
== END 2016-07-27 14:43 | disposition home or self-care (01) | DRG 443 ==
LOC: PHED 16:52 → PHEDA 19:29 → HOCA 23:00
PROVIDERS: ADMIT Internal Medicine; ATTEND Internal Medicine
DX: R17 Unspecified jaundice (principal); D69.6 Thrombocytopenia, unspecified; G20 Parkinson's disease; I10 Essential (primary) hypertension; I25.10 Atherosclerotic heart disease of native coronary artery without angina pectoris; Z95.5 Presence of coronary angioplasty implant and graft; Z85.828 Personal history of other malignant neoplasm of skin; E78.00 Pure hypercholesterolemia, unspecified; H91.90 Unspecified hearing loss, unspecified ear; K21.9 Gastro-esophageal reflux disease without esophagitis; K59.00 Constipation, unspecified; N28.1 Cyst of kidney, acquired
CPT/HCPCS: 74183; 76377; 76705; 80048; 80053; 80074; 80076; 81001; 83520; 83615; 83690; 85007; 85027; 85610; 86038; 86256; 99284; A9579; J1956; J2060; J7030